=== PATIENT | female | born 1995 | race Caucasian/White ===

== ENCOUNTER 2022-02-22 21:37 | Emergency (ER) | payer BC ==
[~2022-02-22 21:37] MED LIST: FEOSOL325 MG PO; OMEPRAZOLE20 MG PO; PERCOCET 10-321 EACH PO
[2022-02-22 22:35] LABS: HEMOGLOBIN 9.7 gm/dl (12.3-15.3); RED BLOOD COUNT 4.47 M/UL (4.00-5.10); WHITE BLOOD COUNT 9.4 K/UL (4.5-11.0)
[2022-02-22 22:57] LABS: BUN/CREATININE RATIO 17 (0-10)
== END 2022-02-23 09:24 | disposition other institution (70) ==
LOC: ER1 21:37
PROVIDERS: Nurse Practitioner
DX: L02.211 Cutaneous abscess of abdominal wall (principal)
CPT/HCPCS: 80053; 81001; 83605; 84703; 85025; 86140; 87040; 87086; 96374; 96375; 99284; J2270; Q9967

== ENCOUNTER → 2022-03-12 | Outpatient (CLI) | payer BC | LOC: CT 13:33 | DX: Z87.898 Personal history of other specified conditions (principal) | CPT/HCPCS: Q9967 ==